=== PATIENT | male | born 1980 | race Caucasian/White ===

== ENCOUNTER 2016-10-21 10:05 | Emergency (ER) | payer MEDICAID ==
[2016-10-21 10:34] VITALS: RESP 16
[2016-10-21] MEDS ORDERED: IBUPROFEN 600 MG TAB PO ONE (10:35)
[2016-10-21] MEDS ORDERED: DIAZEPAM 10 MG TAB PO ONE (11:04)
[2016-10-21] MEDS ORDERED: NS 1,000 ML IV ONE (11:04)
[2016-10-21] MEDS ORDERED: DIAZEPAM 5 MG TAB ONE (11:08)
[2016-10-21] MEDS ORDERED: DIAZEPAM 5 MG TAB PO ONE (11:13)
[2016-10-21 11:20] LABS: % IMMATURE GRANULYOCYTES 0.5 % (0.0-1.1); ABSOLUTE IMMATURE GRANULOCYTES 0.03 10^3/uL (0.00-0.10); ADD DIFF? NO; ADD MORPH? YES; ADD SCAN? NO; ATYPICAL LYMPHOCYTE FLAG 30 (0-99); FRAGMENT RBC FLAG 20 (0-99); HEMATOCRIT 46.7 % (40.0-51.0); HEMOGLOBIN 14.6 g/dL (13.7-17.5); LEFT SHIFT FLG 0 (0-99); LIPEMIA HEMOLYSIS FLAG 80 (0-99); MEAN CELL HEMOGLOBIN 19.7 pg (27.9-34.1); MEAN CELL HEMOGLOBIN CONCENTR. 31.3 g/dL (32.4-36.7); MEAN PLATELET VOLUME 9.9 fL (8.7-11.7); PLATELET CLUMPS FLAG 0 (0-99); PLATELET COUNT 245 10^3/uL (150-400); RED CELL DISTRIBUTION WIDTH 17.6 % (11.5-15.2)
[2016-10-21 11:28] LABS: MEAN CELL VOLUME 63.1 fL (81.5-99.8)
[2016-10-21 11:36] LABS: SEDIMENTATION RATE 4 MM/HR (0-15)
[2016-10-21 11:45] LABS: ANION GAP 15 mEq/L (8-16); CALCIUM 9.6 mg/dL (8.5-10.4); CARBON DIOXIDE 27 mEq/l (22-31); CHLORIDE 101 mEq/L (97-110); CREATININE 0.8 mg/dL (0.7-1.3); GLOMERULAR FILTRATION RATE > 60; GLUCOSE 84 mg/dL (70-100); POTASSIUM 4.4 mEq/L (3.5-5.2); SODIUM 143 mEq/L (134-144)
--- NOTE | 2016-10-21 12:26 | UCPHY ---
H & P Time Seen by Provider: 10/21/16 10:31 Patient Type: Established HPI/ROS: 36-year-old male presents complaining of upper back pain for approximately 5 days worse with movement, difficulty sleeping secondary to pain. He denies numbness or tingling in his arms or legs. He denies loss of bowel or bladder control. 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 He does not recall a specific injury prior to this onset of upper back pain. Review of systems General no fever no chills no weakness HEENT no eye pain no eye discharge. No eye redness, no sore throat Respiratory no cough, no shortness of breath Cardiac no chest pain, no peripheral edema GI no abdominal pain, no diarrhea, no constipation, no nausea, no vomiting no flank pain, no hematuria, no dysuria Musculoskeletal positive myalgias, no joint pain Heme no easy bruising, no easy bleeding Endo no polyuria, no polydipsia Skin no rashes, no pruritus Neuro no syncope, no dizziness, no headaches Psych is no suicidal ideation, no homicidal ideation Past Medical/Surgical History: None Social History: Denies alcohol or drug use Smoking Status: Current every day smoker Physical Exam: 36-year-old male alert and oriented in moderate distress secondary to upper back pain and spasm HEENT atraumatic normocephalic, extraocular muscles intact, anicteric Oropharynx negative for erythema negative exudate, tolerating her own secretions Neck supple no meningismus Lungs clear to auscultation bilaterally Chest tenderness to palpation right upper parasternal chest, no rash no ecchymosis no crepitus Heart regular rate and rhythm without murmur rub or gallop Abdomen nondistended normoactive bowel sounds soft nontender Back right upper back trapezius and para spinal tenderness to palpation with obvious back spasm No rash, no swelling, no ecchymosis no crepitus Extremities no cyanosis clubbing or edema Neuro alert and oriented, no focal deficits Constitutional: Initial Vital Signs Temperature (C) 36.6 C 10/21/16 10:32 Heart Rate 79 10/21/16 10:32 Respiratory Rate 16 10/21/16 10:32 Blood Pressure 125/74 H 10/21/16 10:32 O2 Sat (%) 98 10/21/16 10:32 O2 Delivery Mode Room Air Allergies/Adverse Reactions: No Known Allergies Allergy (Verified 10/21/16 10:34) Home Medications: Medication Instructions Recorded Diazepam [Valium 5 MG (*)] 5 mg PO TID PRN #15 tab 10/21/16 Hydrocodone/Acetaminophen [[place] 1 tab PO Q6H PRN #12 tab 10/21/16 5/325 (*)] Ibuprofen 600 mg PO Q8 PRN #24 tablet 10/21/16 Medical Decision Making - Diagnostics Imaging: Chest x-ray negative Thoracic spine with mild scoliosis ED Course/Re-evaluation: Patient seen and evaluated for upper back pain, right chest pain Chest x-ray negative Thoracic spine-scoliosis mild Labs CBC sed rate BMP all within normal limits Differential diagnosis considered Thoracic spine compression fracture, epidural abscess, muscle spasm upper back, pneumothorax Impression Right upper back muscle spasm Plan [place], diazepam, ibuprofen Follow up with primary care physician - Data Points Laboratory Results: Laboratory Results 10/21/16 11:15 10/21/16 11:15 10/21/16 11:15 Smear Review By Harjit CONSTANTINO MD Medications Given: Discontinued Medications Diazepam (Valium) 10 mg PO EDNOW ONE Stop: 10/21/16 11:05 Last Admin: 10/21/16 11:14 Dose: Not Given Diazepam (Valium) 10 mg PO EDNOW ONE Stop: 10/21/16 11:14 Last Admin: 10/21/16 11:14 Dose: 10 mg Sodium Chloride (Ns) 1,000 mls @ 0 mls/hr IV ONCE ONE PRN Reason: Wide Open Stop: 10/21/16 11:05 Last Admin: 10/21/16 11:15 Dose: 1,000 mls Ibuprofen (Motrin) 600 mg PO EDNOW ONE Stop: 10/21/16 10:36 Last Admin: 10/21/16 10:44 Dose: 600 mg Morphine Sulfate (Morphine) 2 mg IVP EDNOW ONE Stop: 10/21/16 12:30 Last Admin: 10/21/16 12:40 Dose: 2 mg Departure - Departure Disposition: Home, Routine, Self-Care Clinical Impression: Muscle strain of right upper back, Costochondral chest pain Condition: Good Instructions: Muscle Strain (ED), Muscle Spasm (ED), Back Pain (ED) Additional Instructions: See your doctor for follow-up in 3-5 days Referrals: JOSAFAT JEAN,Corina [Primary Care Provider] - As per Instructions Prescriptions: Diazepam [Valium 5 MG (*)] 5 mg PO TID PRN #15 tab PRN Reason: Spasms Hydrocodone/Acetaminophen [[place] 5/325 (*)] 1 tab PO Q6H PRN #12 tab PRN Reason: Pain, Moderate Ibuprofen 600 mg PO Q8 PRN #24 tablet PRN Reason: Pain, Moderate - PQRS PQRS Measurement: na
[2016-10-21 12:30] LABS: PLATELET ESTIMATE ADEQUATE (ADEQ)
[2016-10-21 12:34] LABS: MACROCYTES 1+; MICROCYTES 1+; SCHISTOCYTES 1+
[2016-10-21 13:30] VITALS: BP 104/75
[2016-10-21 13:33] VITALS: PULSE 81; TEMP 97.9; O2SAT 96
== END 2016-10-21 13:29 | disposition home or self-care (01) ==
LOC: CED 10:05
DX: S29.012A Strain of muscle and tendon of back wall of thorax, initial encounter (principal); R07.89 Other chest pain; Z72.0 Tobacco use
CPT/HCPCS: 71020-PO; 72072-PO; 80048-PO; 82550-PO; 85025-PO; 85652-PO; 96361-PO; 96374-PO; 99214-PO; G0463-PO